=== PATIENT | female | born 1930 | race Two or more races ===

== ENCOUNTER 2019-08-06 07:31 | Emergency (ER) | payer MEDICARE ==
[~2019-08-06] VITALS: Ht 144.8 cm; Wt 65.0 kg
[2019-08-06] MEDS ORDERED: ONDANSETRON PF 4 MG/2 ML VIAL. IVP ONE (08:00)
[2019-08-06] MEDS ORDERED: MECLIZINE HCL 12.5 MG TABLET. PO ONE (08:00)
--- NOTE | 2019-08-06 08:09 | PHYS DOC ---
Past Medical History Past Medical History: Arthritis, Diabetes-Type II, High Cholesterol, Hype rtension Past Surgical History: Hysterectomy Smoking Status: Never Smoker Alcohol Use: None Drug Use: None General Adult EDM: Chief Complaint: DIZZY/LIGHT HEADED HPI: HPI: Patient is a 89 year old female who was brought here by EMS from home due to dizziness. Patient says he went to sleep last night at 11 PM after she was watching a movie, she was doing okay then. Patient says he woke up about 1 AM this morning to walk to the bathroom when she became very dizzy. Patient felt like the room is spinning around her. She denies any ringing in her ear. The dizziness gets worse whenever she walks or move her head. She feels much better when she lays down flat on her back. Patient denies any chest pain, no abdominal pain, no trouble breathing, no blurry vision. Patient denies any headache, no weakness or numbness anywhere. Patient has history of diabetes, hypertension, high cholesterol. Patient denies any history of stroke in the past. Patient denies any injury. Patient denies any recent upper respiratory infection. Review of Systems: Review of Systems: Constitutional: Denies fever or chills. [] Eyes: Denies change in visual acuity. [] HENT: Denies nasal congestion or sore throat. [] Respiratory: Denies cough or shortness of breath. [] Cardiovascular: Denies chest pain or edema. [] GI: Denies abdominal pain, nausea, vomiting, bloody stools or diarrhea. [] : Denies dysuria. [] Musculoskeletal: Denies back pain or joint pain. [] Integument: Denies rash. [] Neurologic: Denies headache, focal weakness or sensory changes. Positive for dizziness. Endocrine: Denies polyuria or polydipsia. [] Lymphatic: Denies swollen glands. [] Psychiatric: Denies depression or anxiety. [] Heart Score: Risk Factors: Risk Factors: DM, Current or recent (<one month) smoker, HTN, HLP, family history of CAD, obesity. Risk Scores: Score 0 - 3: 2.5% MACE over next 6 weeks - Discharge Home Score 4 - 6: 20.3% MACE over next 6 weeks - Admit for Clinical Observation Score 7 - 10: 72.7% MACE over next 6 weeks - Early Invasive Strategies Current Medications: Current Medications Medications (Trade) Dose Ordered Sig/Ivory Start Time Stop Time Status Last Admin Dose Admin Meclizine HCl (Antivert) 25 mg 1X ONCE 08/06/19 08:00 08/06/19 08:01 DC Ondansetron HCl (Zofran) 4 mg 1X ONCE 08/06/19 08:00 08/06/19 08:01 DC Allergies: Allergies: Allergies Coded Allergies Type Severity Reaction Last Updated Verified No Known Drug Allergies 05/26/15 No Physical Exam: PE: Constitutional: Well developed, well nourished, no acute distress, non-toxic appearance. [] HENT: Normocephalic, atraumatic, bilateral external ears normal, oropharynx moist, no oral exudates, nose normal. [] Eyes: PERRLA, EOMI, conjunctiva normal, no discharge. [] Neck: Normal range of motion, no tenderness, supple, no stridor. [] Cardiovascular:Heart rate regular rhythm, no murmur [] Lungs & Thorax: Bilateral breath sounds clear to auscultation [] Abdomen: Bowel sounds normal, soft, no tenderness, no masses, no pulsatile masses. [] Skin: Warm, dry, no erythema, no rash. [] Back: No tenderness, no CVA tenderness. [] Extremities: No tenderness, no cyanosis, no clubbing, ROM intact, no edema. [] Neurologic: Alert and oriented X 3, normal motor function, normal sensory function, no focal deficits noted. Patient can move all her extremities without a problem, normal speech. Patient becames extremely dizzy when she sat up. Psychologic: Affect normal, judgement normal, mood normal. [] Current Patient Data: Vital Signs: Vital Signs Date Time Temp Pulse Resp B/P (MAP) Pulse Ox O2 Delivery O2 Flow Rate FiO2 08/06/19 07:32 98.7 90 16 177/71 (106) 100 98.7 EKG: EKG: EKG was done a 18, heart rate of 90 beats per minutes, sinus rhythm, no ST segment elevation. Radiology/Procedures: Radiology/Procedures: [][facility] [address] [place], [place] [id number] IMAGING REPORT Signed PATIENT: AVELINO CUMMINGS ACCOUNT: [id number] : 1930 LOCATION: ER AGE: 89 SEX: F EXAM STATUS: PRE ER ORD. PHYSICIAN: FLORA KENNEY DO REASON: WOKE UP AT 1 AM WITH DIZZINESS PROCEDURE: CT HEAD WO CONTRAST CT brain without contrast. HISTORY: Dizziness CT scan the brain was done without contrast. Visualized sinuses are clear. There is no intracranial hemorrhage or subdural hematoma. There is mild diffuse atrophy. Ventricles are normal in size. There is no mass or shift of the midline. An acute CVA is not identified. There is decreased density in the periventricular white matter suggesting chronic microvascular changes. IMPRESSION: 1. Atrophy and chronic microvascular changes. 2. No intracranial hemorrhage or subdural hematoma. PQRS Compliance Statement: One or more of the following individualized dose reduction techniques were utilized for this examination: 1. Automated exposure control 2. Adjustment of the mA and/or kV according to patient size 3. Use of iterative reconstruction technique Electronically signed by: Martín Patel MD (08/06/2019 8:19 AM) [id number] DICTATED and SIGNED BY: MARTÍN PATEL MD DATE: 08/06/19 0819 Course & Med Decision Making: Course & Med Decision Making Pertinent Labs and Imaging studies reviewed. (See chart for details) Patient is an 89-year-old female who was evaluated in the ED due to dizziness. Her dizziness affected by position. Patient was given meclizine in the ED, she felt completely normal. She is able to stand up and walk without any problem. No neurological deficit. Patient would like to go home. CT scan of head did not show any acute problem. Patient most likely suffered benign positional vertigo condition. Patient will be discharged home with prescription for meclizine, she was instructed to follow-up with her family doctor for referral to a neurologist on ENT evaluation. Patient is amenable to plan of care Dragon Disclaimer: Angelica Disclaimer: This electronic medical record was generated, in whole or in part, using a voice recognition dictation system. Departure Departure Impression: Primary Impression: Dizziness Additional Impression: Vertigo Disposition: HOME, SELF-CARE Condition: IMPROVED Referrals: SANDRITA HERNANDEZ MD (PCP) please follow up with your family doctor on Wednesday for reevalauation. Patient Instructions: Benign Positional Vertigo, Dizziness Scripts Meclizine Hcl (MECLIZINE HCL) 25 Mg Tablet 1 TAB PO PRN TID for dizziness, #30 TAB Prov: FLORA KENNEY DO 08/06/19 FLORA KENNEY DO August 06, 2019 08:09
--- NOTE | 2019-08-06 08:22 | RAD ---
CT brain without contrast. HISTORY: Dizziness CT scan the brain was done without contrast. Visualized sinuses are clear. There is no intracranial hemorrhage or subdural hematoma. There is mild diffuse atrophy. Ventricles are normal in size. There is no mass or shift of the midline. An acute CVA is not identified. There is decreased density in the periventricular white matter suggesting chronic microvascular changes. IMPRESSION: 1. Atrophy and chronic microvascular changes. 2. No intracranial hemorrhage or subdural hematoma. PQRS Compliance Statement: One or more of the following individualized dose reduction techniques were utilized for this examination: 1. Automated exposure control 2. Adjustment of the mA and/or kV according to patient size 3. Use of iterative reconstruction technique Electronically signed by: Martín Patel MD (08/06/2019 8:19 AM) [id number]
[2019-08-06 08:38] LABS: BASO % 0 % (0-3); EOS % 0 % (0-3); HEMATOCRIT 37.8 % (36.0-47.0); HEMOGLOBIN 12.5 g/dL (12.0-15.5); LYMPH # 1.3 x10^3/uL (1.0-4.8); LYMPH % 17 % (24-48); MEAN CORPUSCULAR HEMOGLOBIN 27 pg (25-35); MEAN CORPUSCULAR HGB CONC 33 g/dL (31-37); MEAN CORPUSCULAR VOLUME 82 fL (79-100); MONO # 0.4 x10^3/uL (0.0-1.1); MONO % 5 % (0-9); NEUT % 78 % (31-73); PLATELET COUNT 253 x10^3/uL (140-400); RED CELL DISTRIBUTION WIDTH 14.8 % (11.5-14.5); WHITE BLOOD COUNT 7.7 x10^3/uL (4.0-11.0)
[2019-08-06 08:46] LABS: BILIRUBIN,URINE NEGATIVE (NEG); CLARITY,URINE CLEAR; NITRITE,URINE NEGATIVE (NEG); PROTEIN,URINE NEGATIVE (NEG-TRACE); UROBILINOGEN,URINE 0.2 mg/dL (0.2 mg/dL)
[2019-08-06 08:47] LABS: CALCIUM 8.9 mg/dL (8.5-10.1); CREATININE 0.9 mg/dL (0.6-1.0); GFR 59.2; POTASSIUM 3.7 mmol/L (3.5-5.1)
[2019-08-06 08:52] LABS: ALBUMIN/GLOBULIN RATIO 1.1 (1.0-1.7); MAGNESIUM 1.8 mg/dL (1.8-2.4); TOTAL BILIRUBIN 0.5 mg/dL (0.2-1.0); TOTAL PROTEIN 7.5 g/dL (6.4-8.2)
[2019-08-06 08:56] LABS: PROTHROMBIN TIME PATIENT 14.3 SEC (11.7-14.0)
[2019-08-06 09:04] LABS: COLOR,URINE COLORLESS
[2019-08-06 09:06] LABS: AMORPHOUS SEDIMENT,UR PRESENT /HPF; BACTERIA,URINE 0 /HPF (0-FEW); RBC,URINE 0 /HPF (0-2); SQUAMOUS EPITHELIAL CELL,UR FEW /LPF; WBC,URINE 0 /HPF (0-4)
[2019-08-06] MEDS ORDERED: MECL-75 PO (10:08)
[2019-08-06 10:55] VITALS: BP 157/65
--- NOTE | 2019-08-07 07:03 | EKG ---
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
== END 2019-08-06 11:00 | disposition home or self-care (01) ==
LOC: ER 07:31
DX: R42 Dizziness and giddiness (principal); M19.90 Unspecified osteoarthritis, unspecified site; E11.9 Type 2 diabetes mellitus without complications; E78.00 Pure hypercholesterolemia, unspecified; I10 Essential (primary) hypertension; Z90.710 Acquired absence of both cervix and uterus
CPT/HCPCS: 36415; 70450; 80053; 81001; 83735; 84484; 85025; 85610; 85730; 93005; 96374; 99285; J2405; J8597